=== PATIENT | female | born 1975 | race Caucasian/White ===

== ENCOUNTER 2020-05-20 10:15 | Outpatient (RCR) | payer OTHER, SELFPAY ==
[2014-11-22 09:37] VITALS: BMI 27.6
== END 2020-07-13 23:59 ==
LOC: IMMUN 10:15
PROVIDERS: PCP Internal Medicine; Referring Provider Family Medicine; Visit Provider Family Medicine
DX: Z23 Encounter for immunization (principal)
CPT/HCPCS: 0001A; 0002A; 91300